=== PATIENT | female | born 1980 | race Caucasian/White ===

== ENCOUNTER 2017-03-24 15:40 | Inpatient (IN) | payer OTHER ==
[2017-03-24] MEDS ORDERED: CARBOPROST 250 MCG INJ IM (17:00)
[2017-03-24] MEDS ORDERED: OXYTOCIN 30 UNITS/LR 500 ML IV (17:00)
[2017-03-24] MEDS ORDERED: MISOPROSTOL 200 MCG TAB PR (17:00)
[2017-03-24] MEDS ORDERED: METHYLERGONOVINE 0.2 MG INJ IM (17:00)
[2017-03-24 17:51] LABS: ADD MAN DIFF? NO
[2017-03-24 17:58] LABS: BASOPHILS % 0.1 % (0.0-2.0); HEMATOCRIT 31.5 % (37.0-47.0); HEMOGLOBIN 10.4 g/dl (12.0-16.0); MEAN CORPUSCULAR HEMOGLOBIN 29.1 pg (29.0-33.0); MEAN CORPUSCULAR VOLUME 88.2 fl (82.0-101.0); MEAN PLATELET VOLUME 11.5 fl (7.4-10.4); MONOCYTE # 0.4 10^3/ul (0.3-0.9); MONOCYTES % 4.3 % (0.0-11.0); NEUTROPHIL # 8.4 10^3/ul (1.6-7.5); NEUTROPHILS % 84.4 % (39.0-77.0); PLATELET COUNT 189 10^3/UL (140-415); RED BLOOD COUNT 3.57 10^6/ul (4.20-5.40); RED CELL DISTRIBUTION WIDTH 13.1 % (11.5-14.5)
[2017-03-24] MEDS: LACTATED RINGER'S 1,000 ML IV (18:03)
[2017-03-24 18:17] LABS: ALANINE AMINOTRANSFERASE 166 IU/L (13-69); ALBUMIN 3.1 g/dl (3.3-4.9); ALBUMIN/GLOBULIN RATIO 0.91; ALKALINE PHOSPHATASE 159 IU/L (42-121); ANION GAP 14 (8-16); ASPARTATE AMINO TRANSFERASE 113 IU/L (15-46); BILIRUBIN,INDIRECT 0.2 mg/dl (0-1.1); BILIRUBIN,TOTAL 0.2 mg/dl (0.2-1.3); BLOOD UREA NITROGEN 11 mg/dl (7-20); CALCIUM 8.2 mg/dl (8.4-10.2); CARBON DIOXIDE 19 mmol/L (21-31); CHLORIDE 108 mmol/L (97-110); CREATININE 0.68 mg/dl (0.44-1.00); GLUCOSE 120 mg/dl (70-220); POTASSIUM 4.1 mmol/L (3.5-5.1); SODIUM 137 mmol/L (135-144); TOTAL PROTEIN 6.5 g/dl (6.1-8.1)
[2017-03-24 18:18] LABS: INR 0.95; PARTIAL THROMBOPLASTIN TIME 25.1 Sec (25.0-35.0); PROTIME 12.8 Sec (11.9-14.9)
[2017-03-24] MEDS ORDERED: ONDANSETRON 4 MG INJ (20:17)
[2017-03-24] MEDS ORDERED: CITRIC ACID/SODIUM CITRATE 15 ML CUP (20:17)
[2017-03-24] MEDS: ONDANSETRON 4 MG INJ IV (20:25)
[2017-03-24 20:28] LABS: HEPATITIS B SURFACE ANTIGEN NEGATIVE (NEGATIVE)
[2017-03-24] MEDS: CITRIC ACID/SODIUM CITRATE 15 ML CUP PO (20:30)
[2017-03-24] MEDS ORDERED: morphine SULFATE/PF (10 MG/10 ML) INJ (20:33)
[2017-03-24] MEDS ORDERED: FENTAnyl 50 MCG/ML VIAL (20:34)
[2017-03-24] MEDS ORDERED: PHENYLephrine (100 MCG/ML) 5ML SYG (21:15)
[2017-03-24] MEDS ORDERED: DEXAMETHASONE 4 MG/ML 1 ML INJ (21:22)
[2017-03-24 22:28] LABS: ADD UMIC YES; UR ASCORBIC ACID NEGATIVE (NEGATIVE); UR BACTERIA FEW /HPF (NONE SEEN); UR BILIRUBIN (Dip) NEGATIVE (NEGATIVE); UR BLOOD (Dip) NEGATIVE (NEGATIVE); UR CLARITY CLEAR (CLEAR); UR COLOR YELLOW (YELLOW); UR GLUCOSE (Dip) NEGATIVE (NEGATIVE); UR KETONES (Dip) 2+ mg/dL (NEGATIVE); UR LEUKOCYTE ESTERASE (Dip) 1+ Leu/ul (NEGATIVE); UR MUCUS FEW /HPF (NONE SEEN); UR NITRITE (Dip) NEGATIVE (NEGATIVE); UR RBC 2 /HPF (0-5); UR SPECIFIC GRAVITY (Dip) 1.021 (1.003-1.030); UR SQUAMOUS EPITHELIAL CELL FEW /HPF (FEW); UR TOTAL PROTEIN (Dip) 1+ mg/dl (NEGATIVE); UR UROBILINOGEN (Dip) NEGATIVE (NEGATIVE); UR WBC 4 /HPF (0-5)
[2017-03-24] MEDS ORDERED: ONDANSETRON 4 MG INJ IV (22:30)
[2017-03-24] MEDS ORDERED: NALOXONE (0.4 MG/ML) INJ IV (22:30)
[2017-03-24] MEDS ORDERED: ZOLPIDEM 5 MG TAB PO (22:30)
[2017-03-24 22:44] LABS: AMPHETAMINE/METHAMPHETAMINE Negative (NEGATIVE); BARBITURATES Negative (NEGATIVE); BENZODIAZEPINES Negative (NEGATIVE); CANNABINOIDS Positive (NEGATIVE)
[2017-03-24 22:45] LABS: COCAINE Negative (NEGATIVE); OPIATES Negative (NEGATIVE)
[2017-03-24] MEDS: OXYTOCIN 30 UNITS/LR 500 ML IV (23:13)
[2017-03-24] MEDS: CEFAZOLIN 2 GM/50 ML (PMX) 50 ML IVPB (23:23)
[2017-03-25] MEDS: DIPHENHYDRAMINE 50 MG INJ IV (00:07)
[2017-03-25] MEDS: LACTATED RINGER'S 1,000 ML IV ×3 (01:51→17:34)
[2017-03-25] MEDS: CEFAZOLIN 2 GM/50 ML (PMX) 50 ML IV ×3 (01:51→18:09)
[2017-03-25] MEDS ORDERED: OXYTOCIN 30 UNITS/LR 500 ML IV (02:00)
[2017-03-25] MEDS ORDERED: MISOPROSTOL 200 MCG TAB PR (02:00)
[2017-03-25] MEDS ORDERED: METHYLERGONOVINE 0.2 MG INJ IM (02:00)
[2017-03-25] MEDS ORDERED: CARBOPROST 250 MCG INJ IM (02:00)
[2017-03-25] MEDS: morphine 4 MG/ML VIAL IV ×2 (07:32→16:56)
[2017-03-25 08:59] LABS: ADD MAN DIFF? NO
[2017-03-25 09:03] LABS: BASOPHILS % 0.1 % (0.0-2.0); HEMATOCRIT 26.6 % (37.0-47.0); HEMOGLOBIN 8.8 g/dl (12.0-16.0); LYMPHOCYTES # 1.7 10^3/ul (0.8-2.9); LYMPHOCYTES % 11.4 % (15.0-51.0); MEAN CORPUSCULAR HEMOGLOBIN 29.4 pg (29.0-33.0); MEAN CORPUSCULAR HGB CONC 33.1 g/dl (32.0-37.0); MEAN PLATELET VOLUME 11.8 fl (7.4-10.4); MONOCYTES % 6.3 % (0.0-11.0); NEUTROPHIL # 12.3 10^3/ul (1.6-7.5); NEUTROPHILS % 81.5 % (39.0-77.0); PLATELET COUNT 168 10^3/UL (140-415); RED BLOOD COUNT 2.99 10^6/ul (4.20-5.40); RED CELL DISTRIBUTION WIDTH 13.3 % (11.5-14.5)
[2017-03-25 09:03] LABS: WHITE BLOOD COUNT 15.2 10^3/ul (4.8-10.8)
[2017-03-25] MEDS ORDERED: HYDROCODONE/APAP (5/325) TAB PO (15:30)
[2017-03-25] MEDS ORDERED: IBUPROFEN 600 MG TAB PO (18:00)
[2017-03-25] MEDS: SENNA/DOCUSATE NA (8.6MG/50MG) TAB PO (21:20)
[2017-03-25] MEDS: morphine 2 MG INJ IV (21:21)
[2017-03-25] MEDS: LANOLIN 7 GM TUBE TOP (21:39)
[2017-03-25 21:53] LABS: RAPID PLASMA REAGIN NONREACTIVE (NR)
[2017-03-26] MEDS: LACTATED RINGER'S 1,000 ML IV ×3 (01:34→17:34)
[2017-03-26] MEDS: OXYCODONE/ACETAMINOPHEN (5/325) TAB PO ×4 (05:37→23:29)
[2017-03-26] MEDS: SENNA/DOCUSATE NA (8.6MG/50MG) TAB PO ×2 (12:05→21:12)
[2017-03-27] MEDS: LACTATED RINGER'S 1,000 ML IV (01:34)
[2017-03-27] MEDS: OXYCODONE/ACETAMINOPHEN (5/325) TAB PO ×3 (06:18→19:49)
[2017-03-27] MEDS: MAGNESIUM HYDROXIDE 30ML CUP PO ×2 (09:00→21:45)
[2017-03-27] MEDS: SENNA/DOCUSATE NA (8.6MG/50MG) TAB PO ×2 (09:00→21:45)
[2017-03-28] MEDS: OXYCODONE/ACETAMINOPHEN (5/325) TAB PO ×2 (00:13→11:47)
[2017-03-28] MEDS: DIPHTH/TET/ACEL PERTUSS (ADULT) 0.5 ML VIAL IM* (07:31)
[2017-03-28] MEDS: LACTATED RINGER'S 1,000 ML IV ×4 (07:31→07:32)
[2017-03-28] MEDS: SENNA/DOCUSATE NA (8.6MG/50MG) TAB PO (08:16)
[2017-03-28] MEDS: MAGNESIUM HYDROXIDE 30ML CUP PO (08:42)
== END 2017-03-28 13:30 | disposition home or self-care (01) | DRG 765 ==
LOC: OBT 15:40 → PP1 03-25 02:30 → L-D 15:40 → OBT 16:10 → L-D 16:10
PROC: 10D00Z1 Extraction of Products of Conception, Low, Open Approach (ICD-10-PCS; principal; 2017-03-24)
PROC: 0UB70ZZ Excision of Bilateral Fallopian Tubes, Open Approach (ICD-10-PCS; 2017-03-24)
PROC: 4A1HXCZ Monitoring of Products of Conception, Cardiac Rate, External Approach (ICD-10-PCS; 2017-03-24)
DX: O26.62 Liver and biliary tract disorders in childbirth (principal); K83.1 Obstruction of bile duct; Z68.43 Body mass index [BMI] 50.0-59.9, adult; O30.043 Twin pregnancy, dichorionic/diamniotic, third trimester; O24.420 Gestational diabetes mellitus in childbirth, diet controlled; E66.01 Morbid (severe) obesity due to excess calories; O99.214 Obesity complicating childbirth; Z3A.33 33 weeks gestation of pregnancy; Z37.0 Single live birth; Z30.2 Encounter for sterilization
CPT/HCPCS: 80053; 80307; 81001; 82962; 85025; 85610; 85730; 86592; 86850; 86900; 86901; 87340; 88302; 88307; 90715; 94760; 99464